=== PATIENT | female | born 1955 | race Caucasian/White ===

== ENCOUNTER → 2017-04-24 | Outpatient (CLI) | payer OTHER ==
[~2017-04-24] MED LIST: ASPIRIN PO; BYSTOLIC; CENTRUM PO; COD LIVER OIL1 CAP PO
--- NOTE | ~2017-04-24 | ST ---
Unit #: [id number] #: [id number] Patient: SANTIAGO BARBOSA [id number] [address] [place], [place] [address] [id number] O MR#: [id number] NAME: SANTIAGO BARBOSA : 1955 SEX: F STUDY DATE/TIME: 04/27/2017 UNIT: [facility] ROOM: STUDY DESCRIPTION: Stress ECG Attending Physician: Petros Flowers M.D. Referring Physician: Petros Flowers M.D. Primary Care Physician: Generic Doctor Not In System CARDIOLOGY REPORT EXAM Stress ECG. INDICATION Hypertension, dyslipidemia, chest discomfort. SUMMARY Patient exercise under Petros protocol to maximal effort. The patient completed 8 minutes and 40 seconds of exercise. Heart rate Increased from 80 to 160 (100%), and blood pressure increased from 133/61 to 145/82. Patient stopped with fatigue but no chest pain. The resting ECG was normal with T wave inversion in AVL. With stress there were no diagnostic ST shifts, no significant dysrhythmias, and no heart block. IMPRESSION 1. Good exercise tolerance. 2. Normal heart rate and blood pressure response. 3. Normal stress ECG. Dictated by... Maira John/ann TD: 04/27/2017 10:16 JOB #: [id number] CARDIOLOGY REPORT Page 1 of 1 X Bradford Cardenas MD CARDIOLOGY REPORT
== END | disposition home or self-care (01) ==
LOC: CEKG 08:36
DX: R07.9 Chest pain, unspecified (principal); I10 Essential (primary) hypertension
CPT/HCPCS: 93017; 93306